=== PATIENT | female | born 1965 ===

== ENCOUNTER 2018-09-10 11:52 | Emergency (ER) | payer MEDICAID ==
[2018-09-10 12:03] VITALS: O2SAT 98
--- NOTE | 2018-09-10 13:52 | C.PDOC ---
History Of Present Illness 53 y/o female presents to the ER complaining of pain and parasthesias to the left forearm and hand which have been present for the past 3 days. Patient states that she had similar symptoms in June 2018. At the time, patient reports that the symptoms were considered to be neuropathy from left shoulder surgery. She notes that she was given Medrol dose pack. She was referred for MRI, she has yet to follow-up.Denies having weakness. Time Seen by Provider: 09/10/18 12:36 Chief Complaint (Nursing): Upper Extremity Problem/Injury History Per: Patient History/Exam Limitations: no limitations Onset/Duration Of Symptoms: Days Current Symptoms Are (Timing): Still Present Severity: Moderate Past Medical History Reviewed: Historical Data, Nursing Documentation, Vital Signs Vital Signs: Last Vital Signs Temp 98.2 F 09/10/18 12:00 Pulse 70 09/10/18 12:00 Resp 18 09/10/18 12:00 BP 146/93 H 09/10/18 12:00 Pulse Ox 98 09/10/18 12:00 - Medical History PMH: Arthritis, Back Problems, HTN, Hyperlipidemia Other Surgeries: Hx of surgeries Family History: States: No Known Family Hx - Social History Hx Alcohol Use: No Hx Substance Use: No - Immunization History Hx Tetanus Toxoid Vaccination: No Hx Influenza Vaccination: Yes Hx Pneumococcal Vaccination: No Review Of Systems Except As Marked, All Systems Reviewed And Found Negative. Musculoskeletal: Positive for: Other (left forearm and hand pain) Neurological: Positive for: Other (parasthesias). Negative for: Weakness Physical Exam - Physical Exam Appears: Non-toxic, No Acute Distress Skin: Normal Color, Warm, Dry Head: Atraumatic, Normacephalic Eye(s): bilateral: Normal Inspection Nose: Normal Oral Mucosa: Moist Neck: Supple Chest: Symmetrical Cardiovascular: Rhythm Regular Respiratory: Normal Breath Sounds, No Rales, No Rhonchi, No Wheezing Extremity: Normal ROM (normal ROM in left shoulder, arm, and hand, pt is able to manipulate paper and objects using left hand), No Tenderness, No Swelling Neurological/Psych: Oriented x3, Normal Speech ED Course And Treatment O2 Sat by Pulse Oximetry: 98 (RA) Pulse Ox Interpretation: Normal Medical Decision Making Medical Decision Making: acute on chronic L arm neuropathic pain, h/o same 06/23 has not followed up with PMD/MRI yet. Disposition Doctor Will See Patient In The: Office Counseled Patient/Family Regarding: Studies Performed, Diagnosis - Disposition Referrals: [facility] [Outside] [facility] [Outside] [facility] [Outside] Shaik Sterling MD [Staff Provider] - Disposition: HOME/ ROUTINE Disposition Time: 13:52 Condition: GOOD Additional Instructions: Sigue Medrol Dose pack hasta termina Sigue con Dr. Sterling- considera MRI del rocío o' [place] porque de neuropathia del mano izquierda. 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 I have reviewed the chart and agree that the record accurately reflects my personal performance of the history, physical exam, medical decision making, and the department course for this patient. I have also personally directed, reviewed, and agree with the discharge instructions and disposition.
[2018-09-10 14:09] VITALS: BP 148/86; PULSE 63; RESP 20; TEMP 97.9
== END 2018-09-10 14:10 | disposition home or self-care (01) ==
LOC: C.ER 11:52
DX: G62.9 Polyneuropathy, unspecified (principal); E78.5 Hyperlipidemia, unspecified; I10 Essential (primary) hypertension